=== PATIENT | female | born 2000 | race African-American/Black ===

== ENCOUNTER 2023-10-10 02:12 | Emergency (ER) | payer MEDICAID ==
[~2023-10-10] VITALS: Ht 162.6 cm; Wt 63.0 kg
[2023-10-10 02:30] VITALS: O2SAT 97
[2023-10-10] MEDS: OLANZAPINE 10 MG/VIAL IM ONE (08:42)
[2023-10-10] MEDS: LORAZEPAM 2MG/ML INJ IM ONE ×2 (08:43→18:48)
[2023-10-10 10:47] LABS: BASOPHILS % 0.2 % (0.0-2.0); EOSINOPHILS % 0.8 % (0.0-5.0); HEMATOCRIT. 36.8 % (36.0-48.0); HEMOGLOBIN. 12.3 g/dL (12.0-16.0); LYMPHOCYTES % 28.9 % (20.0-50.0); MEAN CORPUSCULAR HEMOGLOBIN 31.7 pg (28.0-32.0); MEAN CORPUSCULAR HGB CONC 33.4 g/dL (31.0-37.0); MONOCYTES % 8.3 % (2.0-8.0); NEUTROPHILS % 61.8 % (40.0-76.0); PLATELET 229 x1000/uL (130-400); RED BLOOD CELL COUNT 3.87 mill/uL (4.2-5.4); RED CELL DISTRIBUTION WIDTH 12.8 % (11.6-14.6); WHITE BLOOD COUNT 5.6 x1000/uL (4.5-11.0)
[2023-10-10 10:55] LABS: CLARITY URINE CLEAR (CLEAR); COLOR URINE YELLOW (YELLOW); GLUCOSE URINE NEGATIVE (NEGATIVE); KETONES URINE NEGATIVE (NEGATIVE); LEUKOCYTE ESTERASE URINE NEGATIVE (NEGATIVE); NITRITE URINE NEGATIVE (NEGATIVE); OCCULT BLOOD URINE NEGATIVE (NEGATIVE); PH URINE 7.5 (4.5-8.0); PROTEIN URINE NEGATIVE (NEGATIVE); SPECIFIC GRAVITY URINE 1.012 (1.005-1.030)
[2023-10-10 10:57] LABS: CARBON DIOXIDE 31 mEq/L (21-32); CHLORIDE 105 mEq/L (98-107); POTASSIUM 3.7 mEq/L (3.5-5.1); SODIUM 140 mEq/L (136-145)
[2023-10-10 10:58] LABS: CALCIUM 9.6 mg/dL (8.7-10.4)
[2023-10-10 11:00] LABS: HCG SCREEN NEGATIVE
[2023-10-10 11:02] LABS: CREATININE 0.6 mg/dL (0.6-1.0)
[2023-10-10 11:03] LABS: GLUCOSE 88 mg/dL (70-105); UREA NITROGEN BLOOD 9 mg/dL (9-23)
[2023-10-10 11:04] LABS: ACETAMINOPHEN < 2 ug/mL (10-30); ALANINE AMINOTRANSFERASE 9 IU/L (10-49); ASPARTATE AMINOTRANSFERASE 14 IU/L (<34)
[2023-10-10 11:05] LABS: ALBUMIN 4.6 g/dL (3.2-4.8); BILIRUBIN DIRECT 0.3 mg/dL (<=3.0); BILIRUBIN TOTAL 1.2 mg/dL (0.1-1.0); PROTEIN TOTAL 6.9 g/dL (6.0-8.3)
[2023-10-10 11:09] LABS: ETHANOL BLOOD < 10 mg/dL (<10)
[2023-10-10 11:25] LABS: *AMPHETAMINES SCREEN URINE NEGATIVE (NEGATIVE); *BARBITURATES SCREEN URINE NEGATIVE (NEGATIVE); *BENZODIAZEPINES SCREEN URINE NEGATIVE (NEGATIVE); *COCAINE SCREEN URINE NEGATIVE (NEGATIVE); CANNABINOID URINE SCREEN NEGATIVE (NEGATIVE); ECSTASY MDMA SCREEN URINE NEGATIVE (NEGATIVE); METHADONE URINE SCREEN NEGATIVE (NEGATIVE); OPIATES URINE SCREEN NEGATIVE (NEGATIVE); PHENCYCLIDINE URINE SCREEN NEGATIVE (NEGATIVE)
[2023-10-10] MEDS: OLANZAPINE 5MG TABLET ODT PO SCH (16:19)
[2023-10-10 18:43] VITALS: BP 112/73; PULSE 64; RESP 17; TEMP 98.2
[2023-10-10] MEDS: DIPHENHYDRAMINE 50MG/ML VIAL IM ONE (18:48)
[2023-10-10] MEDS: HALOPERIDOL LACTATE 5MG/ML VIAL IM ONE (18:48)
== END 2023-10-10 18:49 ==
LOC: ER 02:12
DX: F29 Unspecified psychosis not due to a substance or known physiological condition (principal); Z00.00 Encounter for general adult medical examination without abnormal findings; Z86.59 Personal history of other mental and behavioral disorders
CPT/HCPCS: 80076; 80305; 80048; 81003; 80307; 80329; 80320; 84703; 85025; 36415; 99285; Z7610 ×2; G0480

== ENCOUNTER → 2023-12-25 | Emergency (ER) | payer MEDICAID ==
[~2023-12-25] VITALS: Ht 162.6 cm; Wt 57.0 kg
[2023-12-25 14:56] VITALS: O2SAT 97
[2023-12-25 15:00] VITALS: BP 94/54; PULSE 100; RESP 16; TEMP 98.1; O2SAT 100
== END ==
LOC: ER 15:26
DX: R07.9 Chest pain, unspecified (principal); F41.9 Anxiety disorder, unspecified; F20.9 Schizophrenia, unspecified
CPT/HCPCS: 71045; 93005; 99283